=== PATIENT | male | born 2005 | race Caucasian/White ===

== ENCOUNTER 2023-05-23 09:09 | Emergency (ER) | payer BC, SELFPAY ==
[2023-05-23] VITALS (48 sets, daily range): BP systolic 96–137; BP diastolic 47–90; PULSE 71–102; RESP 18–20; TEMP 36.8–37.6; O2SAT 93–98; BMI 21.9
--- NOTE | 2023-05-23 09:53 | ED_ITS ---
HPI - General Adult General Time Seen by Provider: 09:53 Date Seen: 05/23/23 Chief complaint: Syncope/Fainted Stated complaint: Faint, wheezing, low blood oxygen Time Seen by Provider: 05/23/23 09:52 Source: patient and RN notes reviewed Mode of arrival: ambulatory Limitations: no limitations History of Present Illness HPI narrative: This 17-year-old male was referred from [facility] where he was seen after probable brief episode of syncope. Shandra chawla was at breakfast, sitting at the table, his friend witnessed him to go forward at the table, there is no trauma. Shandra her notes that his vision went gonsalez, started to lose is hearing and believes he may have actually went out for few seconds. Does not have a history of definite syncope to this level per his report. There has maybe been prior episodes where he has nearly passed out but does not sound to be a common occurrence for him. He has had a little bit of a dry day/nonproductive cough for couple weeks, did not think much of it. Yesterday started feeling quite fatigued, no noted temperature, no sore throat. No GI symptoms with this. [place] fall I did really outside of the cough until yesterday. He reportedly had O2 sats of 88%, sounded wheezy at the care center at [place]. He notes that his nail beds looked dusky to him prior to my seeing him, he states that is resolved. He is not short of breath at this time. He has no chest pain, no GI symptoms, no sore throat. He has had no recent travel. He has maybe felt a little bit more achy since yesterday, slight headache, really did not eat much for breakfast this morning due to the episode. He is still coughing. He was able to take the shuttle from [place] over here. Denies any chronic medical issues or medications. Related Data Previous Rx's Medication Instructions Recorded doxycycline monohydrate 100 mg 100 mg PO BID #20 tabs 05/23/23 tablet Allergies Allergy/AdvReac Type Severity Reaction Status Date / Time No Known Drug Allergies Allergy Verified 05/23/23 09:18 Review of Systems Status of ROS: Reports: 6 or more systems reviewed and unremarkable except as noted in History and below PFSH PFSH Social History Smoking Status: Never smoker Do you use any of these nicotine containing products: None Second hand tobacco smoke exposure: No How often do you have a drink containing alcohol: never How often do you have six or more drinks on one occasion: Never AUDIT-C Alcohol total score: 0 Non-prescribed substance use: denies use service: No Exam Const: Vital Signs, click to edit/add: Vital Signs - 24 hr 05/23/23 09:18 05/23/23 09:55 05/23/23 10:00 Temperature 99.6 F Pulse Rate 87 102 H Pulse Rate [Pulse Oximeter] 89 Pulse Rate [orthos tatic lying Right Pulse Oximeter] Pulse Rate [orthos tatic sitting Righ t] Pulse Rate [orthos tatic standing Rig ht Pulse Oximeter] Respiratory Rate 20 Blood Pressure Blood Pressure [Ri ght Upper Arm] 137/90 H Blood Pressure [or thostatic lying Ri ght Arm] Blood Pressure [or thostatic sitting Right Arm] Blood Pressure [or thostatic standing Left Arm] Pulse Oximetry 94 97 96 Oxygen Delivery Me thod Room Air 05/23/23 10:02 05/23/23 10:10 05/23/23 10:15 Temperature Pulse Rate 99 91 Pulse Rate [Pulse Oximeter] Pulse Rate [orthos tatic lying Right Pulse Oximeter] Pulse Rate [orthos tatic sitting Righ t] Pulse Rate [orthos tatic standing Rig ht Pulse Oximeter] Respiratory Rate Blood Pressure 120/82 Blood Pressure [Ri ght Upper Arm] Blood Pressure [or thostatic lying Ri ght Arm] Blood Pressure [or thostatic sitting Right Arm] Blood Pressure [or thostatic standing Left Arm] Pulse Oximetry 95 95 96 Oxygen Delivery Me thod 05/23/23 10:30 05/23/23 10:32 05/23/23 10:45 Temperature Pulse Rate 102 H 94 88 Pulse Rate [Pulse Oximeter] Pulse Rate [orthos tatic lying Right Pulse Oximeter] Pulse Rate [orthos tatic sitting Righ t] Pulse Rate [orthos tatic standing Rig ht Pulse Oximeter] Respiratory Rate Blood Pressure 99/72 Blood Pressure [Ri ght Upper Arm] Blood Pressure [or thostatic lying Ri ght Arm] Blood Pressure [or thostatic sitting Right Arm] Blood Pressure [or thostatic standing Left Arm] Pulse Oximetry 94 93 95 Oxygen Delivery Me thod 05/23/23 10:55 05/23/23 10:56 05/23/23 10:58 Temperature Pulse Rate 81 96 Pulse Rate [Pulse Oximeter] Pulse Rate [orthos tatic lying Right Pulse Oximeter] 80 Pulse Rate [orthos tatic sitting Righ t] 97 Pulse Rate [orthos tatic standing Rig ht Pulse Oximeter] 86 Respiratory Rate Blood Pressure 108/56 L 96/47 L Blood Pressure [Ri ght Upper Arm] Blood Pressure [or thostatic lying Ri ght Arm] 108/56 L Blood Pressure [or thostatic sitting Right Arm] 96/47 L Blood Pressure [or thostatic standing Left Arm] Pulse Oximetry 93 94 Oxygen Delivery Me thod 05/23/23 11:00 05/23/23 11:01 05/23/23 11:02 Temperature Pulse Rate 78 86 79 Pulse Rate [Pulse Oximeter] Pulse Rate [orthos tatic lying Right Pulse Oximeter] Pulse Rate [orthos tatic sitting Righ t] Pulse Rate [orthos tatic standing Rig ht Pulse Oximeter] Respiratory Rate Blood Pressure 102/57 L Blood Pressure [Ri ght Upper Arm] Blood Pressure [or thostatic lying Ri ght Arm] Blood Pressure [or thostatic sitting Right Arm] Blood Pressure [or thostatic standing Left Arm] Pulse Oximetry 93 94 94 Oxygen Delivery Nh thod 05/23/23 11:15 05/23/23 11:30 05/23/23 11:32 Temperature Pulse Rate 85 84 86 Pulse Rate [Pulse Oximeter] Pulse Rate [orthos tatic lying Right Pulse Oximeter] Pulse Rate [orthos tatic sitting Righ t] Pulse Rate [orthos tatic standing Rig ht Pulse Oximeter] Respiratory Rate Blood Pressure 113/69 Blood Pressure [Ri ght Upper Arm] Blood Pressure [or thostatic lying Ri ght Arm] Blood Pressure [or thostatic sitting Right Arm] Blood Pressure [or thostatic standing Left Arm] Pulse Oximetry 94 95 95 Oxygen Delivery Nh thod 05/23/23 11:45 05/23/23 12:00 05/23/23 12:01 Temperature Pulse Rate 85 77 75 Pulse Rate [Pulse Oximeter] Pulse Rate [orthos tatic lying Right Pulse Oximeter] Pulse Rate [orthos tatic sitting Righ t] Pulse Rate [orthos tatic standing Rig ht Pulse Oximeter] Respiratory Rate Blood Pressure 117/65 Blood Pressure [Ri ght Upper Arm] Blood Pressure [or thostatic lying Ri ght Arm] Blood Pressure [or thostatic sitting Right Arm] Blood Pressure [or thostatic standing Left Arm] Pulse Oximetry 94 95 96 Oxygen Delivery Me thod 05/23/23 12:01 05/23/23 12:02 05/23/23 12:15 Temperature Pulse Rate 75 79 73 Pulse Rate [Pulse Oximeter] Pulse Rate [orthos tatic lying Right Pulse Oximeter] Pulse Rate [orthos tatic sitting Righ t] Pulse Rate [orthos tatic standing Rig ht Pulse Oximeter] Respiratory Rate Blood Pressure 117/65 Blood Pressure [Ri ght Upper Arm] Blood Pressure [or thostatic lying Ri ght Arm] Blood Pressure [or thostatic sitting Right Arm] Blood Pressure [or thostatic standing Left Arm] Pulse Oximetry 96 95 96 Oxygen Delivery Me thod 05/23/23 12:30 05/23/23 12:32 05/23/23 12:37 Temperature 98.5 F Pulse Rate 76 85 Pulse Rate [Pulse Oximeter] Pulse Rate [orthos tatic lying Right Pulse Oximeter] Pulse Rate [orthos tatic sitting Righ t] Pulse Rate [orthos tatic standing Rig ht Pulse Oximeter] Respiratory Rate Blood Pressure 118/69 Blood Pressure [Ri ght Upper Arm] Blood Pressure [or thostatic lying Ri ght Arm] Blood Pressure [or thostatic sitting Right Arm] Blood Pressure [or thostatic standing Left Arm] Pulse Oximetry 96 95 Oxygen Delivery Me thod 05/23/23 12:52 05/23/23 13:00 05/23/23 13:05 Temperature Pulse Rate 84 80 77 Pulse Rate [Pulse Oximeter] Pulse Rate [orthos tatic lying Right Pulse Oximeter] Pulse Rate [orthos tatic sitting Righ t] Pulse Rate [orthos tatic standing Rig ht Pulse Oximeter] Respiratory Rate Blood Pressure Blood Pressure [Ri ght Upper Arm] Blood Pressure [or thostatic lying Ri ght Arm] Blood Pressure [or thostatic sitting Right Arm] Blood Pressure [or thostatic standing Left Arm] Pulse Oximetry 96 94 93 Oxygen Delivery Me thod 05/23/23 13:15 05/23/23 13:30 05/23/23 13:35 Temperature Pulse Rate 83 84 84 Pulse Rate [Pulse Oximeter] Pulse Rate [orthos tatic lying Right Pulse Oximeter] Pulse Rate [orthos tatic sitting Righ t] Pulse Rate [orthos tatic standing Rig ht Pulse Oximeter] Respiratory Rate Blood Pressure Blood Pressure [Ri ght Upper Arm] Blood Pressure [or thostatic lying Ri ght Arm] Blood Pressure [or thostatic sitting Right Arm] Blood Pressure [or thostatic standing Left Arm] Pulse Oximetry 96 96 94 [facility] 05/[facility] 13:45 05/23/23 13:52 05/23/23 13:53 Temperature Pulse Rate 76 93 92 Pulse Rate [Pulse Oximeter] Pulse Rate [orthos tatic lying Right Pulse Oximeter] Pulse Rate [orthos tatic sitting Righ t] Pulse Rate [orthos tatic standing Rig ht Pulse Oximeter] Respiratory Rate Blood Pressure 114/71 121/71 Blood Pressure [Ri ght Upper Arm] Blood Pressure [or thostatic lying Ri ght Arm] Blood Pressure [or thostatic sitting Right Arm] Blood Pressure [or thostatic standing Left Arm] Pulse Oximetry 95 95 96 Oxygen Delivery [facility] 05/23/23 13:55 Temperature Pulse Rate Pulse Rate [Pulse Oximeter] Pulse Rate [orthos tatic lying Right Pulse Oximeter] Pulse Rate [orthos tatic sitting Righ t] 82 Pulse Rate [orthos tatic standing Rig ht Pulse Oximeter] 87 Respiratory Rate Blood Pressure Blood Pressure [Ri ght Upper Arm] Blood Pressure [or thostatic lying Ri ght Arm] Blood Pressure [or thostatic sitting Right Arm] 114/71 Blood Pressure [or thostatic standing Left Arm] 121/71 Pulse Oximetry [facility] is a 17-year-[facility] male that is alert, interactive, no apparent distress. Cheeks are flushed but face symmetric, otherwise atraumatic. TMs canals are normal. Oropharynx with normal mucosa, posterior pharynx looks normal. There is no tonsillar enlargement or exudates. Dentition good repair. Neck is supple, no cervical adenopathy, no thyromegaly masses or nodules. Is able to sit up, lungs are clear, good air entry, no wheezing or crackles. CV regular rate and rhythm, no murmur, normal S1-S2, no S3-S4. Abdomen is soft, nontender, nondistended, no organomegaly. Documenting provider has reviewed patient's vital signs: yes Course Course ED Course: Patient certainly sounds like he is developing underlying illness, certainly pneumonia is in the differential with underlying cough proceeding this. It is possible he could have a new viral syndrome starting. I think infectious etiology looks to be the most likely source here. Will be getting EKG and troponin as well, will consider such entities such as myocarditis. Will obtain a D-dimer. Right now he is clinically stable, will order a L of IV fluids. 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 Will get full complement of labs, will be doing the triple viral swab as well. Reevaluation(s) Time of Reevaluation #1: 11:05 Reevaluation #1: Nursing staff was doing orthostatic vital signs on patient, when she went to have him stand up, he fell back onto the bed, reportedly his face felt cold, got tunnel vision and vision went out, obviously he is symptomatic with orthostatic hypotension, she did not get his last blood pressure due to the symptoms. Will initiate another L of normal saline, have done a lab add on for Monospot and procalcitonin at this time. Portable chest x-ray is negative, may need to consider doing chest CT imaging on him. Time of Reevaluation #2: 11:31 Reevaluation #2: Have reviewed with Cruz that his chest x-ray is looking normal, white blood count is elevated but there is a predominance of neutrophils as well as monocytes. We are waiting on a procalcitonin and Monospot at this time. He will get another L of fluids, have ordered a subsequent L lactated Ringer's. This is likely infectious driving his symptoms, do need to follow-up troponin. He is clinically stable as long as he is lying down right now. Time of Reevaluation #3: 14:27 Reevaluation #3: Patient's chest CT has finally been read, did review with him that there is multifocal pneumonia. His mom is now here, we reviewed his course in cares here. He will be receiving IV doxycycline. He is no longer orthostatic after the 2 L of IV fluids. We will discharge to home on oral antibiotics after his initial IV dose. Vital Signs Vital signs: Initial Vital Signs Temperature 99.6 F 05/23/23 09:18 Temperature Source Temporal Artery Scan 05/23/23 09:18 Pulse Rate 89 05/23/23 09:18 Pulse Rhythm Regular 05/23/23 09:18 Respiratory Rate 20 05/23/23 09:18 Blood Pressure 137/90 H 05/23/23 09:18 Blood Pressure Mean 105 05/23/23 09:18 Blood Pressure Position Supine 05/23/23 09:18 Pulse Oximetry 94 05/23/23 09:18 Oxygen Delivery Method Room Air 05/23/23 09:18 Vital Signs Temperature 99.6 F 05/23/23 09:18 Pulse Rate 89 05/23/23 09:18 Respiratory Rate 20 05/23/23 09:18 Blood Pressure 137/90 H 05/23/23 09:18 Pulse Oximetry 94 05/23/23 09:18 Oxygen Delivery Method Room Air 05/23/23 09:18 Temperature 98.5 F 05/23/23 12:37 Pulse Rate 82 05/23/23 13:55 Respiratory Rate 20 05/23/23 09:18 Blood Pressure 114/71 05/23/23 13:55 Pulse Oximetry 96 05/23/23 13:53 Oxygen Delivery Method Room Air 05/23/23 09:18 Medications Administered Medications: Discontinued Medications Generic Name Dose Route Start Last Admin Trade Name Freq PRN Reason Stop Dose Admin Sodium Chloride 1,000 mls @ 500 mls/hr 05/23/23 10:05 05/23/23 12:45 0.9 % Sodium Chloride 1000 Ml IV 05/23/23 12:04 Infused .Q2H JOHNSON Infusion Lactated Ringer's 1,000 mls @ 500 mls/hr 05/23/23 11:23 05/23/23 13:54 Lactated Ringers 1000 Ml IV 05/23/23 13:22 Infused .Q2H JOHNSON Infusion Medical Decision Making Lab Data Lab results reviewed: Yes I reviewed the patient's lab results Labs: Lab Results 05/23/23 05/23/23 05/23/23 Range/Units 09:53 09:55 10:04 WBC 13.90 H (4.50-11.00) K/uL RBC 4.89 (4.30-5.90) m/uL Hgb 14.9 (13.5-17.5) gm/dL Hct 42.8 (37.0-53.0) % MCV 88 (80-100) fL MCH 31 (26-34) pg MCHC 35 (32-36) gm/dL RDW Coeff of Selina 12.0 (11.5-15.5) % Plt Count 268 (140-440) K/uL Neut % (Auto) 82.5 H (42.0-72.0) % Lymph % (Auto) 8.0 L (20-44) % [place] % (Auto) 9.1 (0.0-11.0) % Eos % (Auto) 0.0 (0.0-7.0) % Baso % (Auto) 0.2 (0.0-3.0) % Neut # (Auto) 11.50 H (1.7-7.0) K/uL Lymph # (Auto) 1.10 (0.90-2.90) K/uL [place] # (Auto) 1.30 H (0.00-0.90) K/UL Eos # (Auto) 0.00 (0.00-0.50) K/uL Baso # (Auto) 0.00 (0.00-0.30) K/uL Abs Immat Gran (auto) 0.00 (0.00-0.30) K/uL Imm/Tot Granulo (auto) 0.2 % D-Dimer Quant (PE/DVT) < 0.27 (0.00-0.50) ug/ml Sodium 136 (135-149) mmol/L Potassium 3.8 (3.6-5.1) mmol/L Chloride 99 (96-114) mmol/L Carbon Dioxide 24 (20-32) mmol/L Anion Gap 13 (7-15) mEq/L BUN 13 (5-24) mg/dL Creatinine 0.9 (0.6-1.2) mg/dL Estimated Creat Clear 152.46 Estimated GFR 126 ml/min Glucose 117 H (60-115) mg/dL Lactate 2.9 H (0.5-1.9) mmol/L Calcium 9.4 (8.7-10.8) mg/dL Total Bilirubin 1.6 H (0.1-1.5) mg/dL AST 54 H (12-35) U/L ALT 20 (4-50) U/L Alkaline Phosphatase 70 (65-260) U/L Troponin I (0.01-0.04) ng/mL C-Reactive Protein 4.2 H (0.5-1.0) mg/dL NT-Pro-B Natriuret Pep 23 pg/mL Total Protein 7.6 (6.0-8.3) g/dL Albumin 4.6 (3.3-5.0) g/dL Procalcitonin 0.12 (<0.50) ng/mL SARS-CoV-2 (PCR) Negative SARS-CoV-2 (Negative) Monoscreen Negative (Negative) Influenza Type A (PCR) Negative PCR FLU A (Negative) Influenza Type B (PCR) Negative PCR FLU B (Negative) RSV (PCR) Negative PCR RSV (Negative) Lab Acknowledgement POC Troponin I 0.00 L (0.01-0.04) ng/ml 05/23/23 05/23/23 05/23/23 Range/Units 11:05 12:23 13:15 WBC (4.50-11.00) K/uL RBC (4.30-5.90) m/uL Hgb (13.5-17.5) gm/dL Hct (37.0-53.0) % MCV (80-100) fL MCH (26-34) pg MCHC (32-36) gm/dL RDW Coeff of Selina (11.5-15.5) % Plt Count (140-440) K/uL Neut % (Auto) (42.0-72.0) % Lymph % (Auto) (20-44) % [place] % (Auto) (0.0-11.0) % Eos % (Auto) (0.0-7.0) % Baso % (Auto) (0.0-3.0) % Neut # (Auto) (1.7-7.0) K/uL Lymph # (Auto) (0.90-2.90) K/uL [place] # (Auto) (0.00-0.90) K/UL Eos # (Auto) (0.00-0.50) K/uL Baso # (Auto) (0.00-0.30) K/uL Abs Immat Gran (auto) (0.00-0.30) K/uL Imm/Tot Granulo (auto) % D-Dimer Quant (PE/DVT) (0.00-0.50) ug/ml Sodium (135-149) mmol/L Potassium (3.6-5.1) mmol/L Chloride (96-114) mmol/L Carbon Dioxide (20-32) mmol/L Anion Gap (7-15) mEq/L BUN (5-24) mg/dL Creatinine (0.6-1.2) mg/dL Estimated Creat Clear Estimated GFR ml/min Glucose (60-115) mg/dL Lactate (0.5-1.9) mmol/L Calcium (8.7-10.8) mg/dL Total Bilirubin (0.1-1.5) mg/dL AST (12-35) U/L ALT (4-50) U/L Alkaline Phosphatase (65-260) U/L Troponin I < 0.01 L (0.01-0.04) ng/mL C-Reactive Protein (0.5-1.0) mg/dL NT-Pro-B Natriuret Pep pg/mL Total Protein (6.0-8.3) g/dL Albumin (3.3-5.0) g/dL Procalcitonin (<0.50) ng/mL SARS-CoV-2 (PCR) (Negative) Monoscreen (Negative) Influenza Type A (PCR) (Negative) Influenza Type B (PCR) (Negative) RSV (PCR) (Negative) Lab Acknowledgement Test Added POC Troponin I 0.01 (0.01-0.04) ng/ml Imaging Data Chest x-ray: Attestation: I have reviewed the pertinent imaging results. My impression: I see no pneumothorax, no evidence of infiltrate on my preliminary review. Radiologist's impression: Patient: [facility] Facility:?[facility] Patient ID:?[id number] Site Patient ID:?[id number]. Site :?2003 Study:?XRay Chest PORTABLE 1 VIEW-05/23/2023 10:38:46 AM Ordering Physician:?Bartolome Hahn Final Report: Indication: Cough Comparison: None available. Technique: Single AP view chest Findings: There is no focal consolidation, effusion, or pneumothorax. The cardiomediastinal silhouette is within normal limits. The bony thorax is grossly intact. Impression: No acute cardiopulmonary abnormality. Dictated by Andres Marino MD @ 05/23/2023 11:02:05 AM (Electronic Signature) CT scan - chest: Attestation: I have reviewed the pertinent imaging results. Radiologist's impression: Patient: [facility] Facility:?[facility] Patient ID:?[id number] Site Patient ID:?[id number]. Site :?2003 Study:?CT Chest W/O-05/23/2023 12:54:12 PM Ordering Physician:Phillip Hahn Final Report: Indication: Syncope, cough Technique: Volumetric multidetector CT images of the chest were obtained without the administration of IV contrast. Comparison: Single view chest May 23, 2023 Findings: The thoracic inlet and thyroid gland are unremarkable. The thoracic aorta is nonaneurysmal. There is no mediastinal, hilar or axillary adenopathy. The trachea and bronchi are well aerated without significant bronchiectasis. There are developing airspace opacities within the right greater than left lower lobes consistent with developing multifocal infiltrates. There is no pleural effusion or pneumothorax. There is no evidence of pulmonary mass or suspicious pulmonary nodule. The partially visualized upper abdominal viscera are within normal limits. The thoracic vertebral body heights remain intact alignment without significant degenerative change or acute osseous abnormality. Impression: There is demonstration of developing patchy airspace opacities within the right greater than left lower lobes, better visualized on current exam than comparison consistent with developing bibasilar multifocal infiltrates. Please note that all CT scans at this facility use dose modulation, iterative reconstruction, and/or weight-based dosing when appropriate to reduce radiation dose to as low as reasonably achievable. Dictated by Andres Marino MD @ 05/23/2023 2:16:09 PM (Electronic Signature) ECG Data Attestation: I personally reviewed and interpreted this ECG as follows: (Sinus rhythm, 86 beats per minute. Flipped T-waves inferiorly and lateral precordial leads, maybe normal variant for healthy slender 17-year-old male.) Prior ECG tracings: not available for review Critical Care Time Critical Care Time Critical Care Time: No Discharge Plan Discharge Clinical Impression: Community acquired pneumonia, Syncope Patient Disposition: Home, Self-Care Condition: Stable Instructions: Community Acquired Pneumonia (ED) Additional Instructions: Need to take oral antibiotics as prescribed, next dose due this evening. Can use Tylenol and ibuprofen per bottle directions if needed for any discomfort, can use [id number] cough and cold medicines if needed for symptom control. If you are not improving over the next week, feel you are worsening at any point with symptoms such as worsening cough, worsening fevers, unable to take your oral antibiotics for any reason, do need to be re-evaluated. Try a to stay well hydrated, eat regular meals. Activity Level: Activity as Tolerated Prescriptions: New doxycycline monohydrate 100 mg tablet 100 mg PO BID Qty: 20 0RF Follow Up/Referrals: Provider,Not a Local [Primary Care Provider] - Stand Alone Forms: [employer] Info Instructions
--- NOTE | 2023-05-23 10:03 | CRLHL7_ITS ---
For Patients: As a result of the Century Cures Act, medical imaging exams and procedure reports are released immediately into your electronic medical record. You may view this report before your referring provider. If you have questions, please contact your health care provider. Indication: Cough Comparison: None available. Technique: Single AP view chest Findings: There is no focal consolidation, effusion, or pneumothorax. The cardiomediastinal silhouette is within normal limits. The bony thorax is grossly intact. Impression: No acute cardiopulmonary abnormality. Dictated by Andres Marino MD @ 05/23/2023 11:02:05 AM (Electronically Signed)
[2023-05-23] MEDS: 0.9 % SODIUM CHLORIDE 1000 ml 1,000 ML 500 ML IV (10:15)
[2023-05-23 10:23] LABS: Lactate* 2.9 mmol/L (0.5-1.9)
[2023-05-23 10:25] LABS: Basophils Percent Auto 0.2 % (0.0-3.0); Hematocrit 42.8 % (37.0-53.0); Hemoglobin* 14.9 gm/dL (13.5-17.5); Immature Granulocytes Pct Auto 0.2 %; Mean Corpuscular HGB Conc 35 gm/dL (32-36); Mean Corpuscular Hemoglobin 31 pg (26-34); Mean Corpuscular Volume 88 fL (80-100); Monocytes Percent Auto 9.1 % (0.0-11.0); Neutrophils Percent Auto 82.5 % (42.0-72.0); Platelet Count* 268 K/uL (140-440); Red Blood Count 4.89 m/uL (4.30-5.90)
[2023-05-23 10:26] LABS: Albumin* 4.6 g/dL (3.3-5.0); Chloride* 99 mmol/L (96-114); Sodium* 136 mmol/L (135-149)
[2023-05-23 10:27] LABS: Potassium* 3.8 mmol/L (3.6-5.1)
[2023-05-23 10:29] LABS: Bilirubin Total* 1.6 mg/dL (0.1-1.5); Creatinine* 0.9 mg/dL (0.6-1.2); Est. Creatinine Clearance* 152.46; Estimated Glomerular Filt Rate 126 ml/min
[2023-05-23 10:30] LABS: Alanine Aminotransferase* 20 U/L (4-50); Alkaline Phosphatase* 70 U/L (65-260); Anion Gap 13 mEq/L (7-15); Aspartate Amino Transferase* 54 U/L (12-35); Blood Urea Nitrogen* 13 mg/dL (5-24); Calcium* 9.4 mg/dL (8.7-10.8); Carbon Dioxide* 24 mmol/L (20-32); D Dimer Quantitative* < 0.27 ug/ml (0.00-0.50); Glucose* 117 mg/dL (60-115); Total Protein* 7.6 g/dL (6.0-8.3)
[2023-05-23 10:32] LABS: C Reactive Protein* 4.2 mg/dL (0.5-1.0)
[2023-05-23 10:37] LABS: Slide Review Reflex No
[2023-05-23 10:39] LABS: NT Pro B Type NatriureticPept* 23 pg/mL
[2023-05-23 10:47] LABS: PCR FLU A Negative PCR FLU A (Negative); PCR FLU B Negative PCR FLU B (Negative); PCR RSV Negative PCR RSV (Negative)
[2023-05-23 10:58] LABS: SARS PCR* Negative SARS-CoV-2 (Negative)
--- NOTE | 2023-05-23 11:01 | ED.NURSE ---
Taking pt orthostatic blood pressures, while pt was standing he felt syncopal and fell back into the bed. Pt did not lose consciousness. Said he felt his face get really cold, and that it was a similar episode to what the pt experienced this morning. Lying back in the bed the pt feels better.
--- NOTE | 2023-05-23 11:06 | ED.NURSE ---
notified of orthostatic BP.
[2023-05-23 11:39] LABS: Mono Screen* Negative (Negative)
[2023-05-23] MEDS: LACTATED RINGERS 1000 ML 1,000 ML 500 ML IV (11:43)
[2023-05-23 11:52] LABS: Procalcitonin* 0.12 ng/mL (<0.50)
--- NOTE | 2023-05-23 12:25 | CRLHL7_ITS ---
For Patients: As a result of the Century Cures Act, medical imaging exams and procedure reports are released immediately into your electronic medical record. You may view this report before your referring provider. If you have questions, please contact your health care provider. Indication: Syncope, cough Technique: Volumetric multidetector CT images of the chest were obtained without the administration of IV contrast. Comparison: Single view chest May 23, 2023 Findings: The thoracic inlet and thyroid gland are unremarkable. The thoracic aorta is nonaneurysmal. There is no mediastinal, hilar or axillary adenopathy. The trachea and bronchi are well aerated without significant bronchiectasis. There are developing airspace opacities within the right greater than left lower lobes consistent with developing multifocal infiltrates. There is no pleural effusion or pneumothorax. There is no evidence of pulmonary mass or suspicious pulmonary nodule. The partially visualized upper abdominal viscera are within normal limits. The thoracic vertebral body heights remain intact alignment without significant degenerative change or acute osseous abnormality. Impression: There is demonstration of developing patchy airspace opacities within the right greater than left lower lobes, better visualized on current exam than comparison consistent with developing bibasilar multifocal infiltrates. Please note that all CT scans at this facility use dose modulation, iterative reconstruction, and/or weight-based dosing when appropriate to reduce radiation dose to as low as reasonably achievable. Dictated by Andres Marino MD @ 05/23/2023 2:16:09 PM (Electronically Signed)
[2023-05-23 13:08] LABS: Troponin, Point-of-Care* 0.01 ng/ml (0.01-0.04)
[2023-05-23 14:00] LABS: Troponin I* < 0.01 ng/mL (0.01-0.04)
[2023-05-23] MEDS: DOXYCYCLINE HYCLATE 100 MG in 0.9 % SODIUM CHLORIDE Mini-bag 100 ML IVPB (14:45)
== END 2023-05-23 15:53 | disposition home or self-care (01) ==
PROVIDERS: Emergency Provider Family Medicine
DX: J18.9 Pneumonia, unspecified organism (principal); R55 Syncope and collapse
CPT/HCPCS: 36415; 71045; 71250; 80053; 83605; 83880; 84145; 84484; 85025; 85379; 86140; 86308; 87631; 93005; 94761; 96361; 96365; 99284; 99285; J7030; J7120